=== PATIENT | female | born 1985 | race Caucasian/White ===

== ENCOUNTER 2018-12-16 10:26 | Inpatient (IN) ==
[2018-12-16] MEDS ORDERED: BUTORPHANOL 2 MG/ML VIAL IV PRN (12:23)
[2018-12-16] MEDS ORDERED: ONDANSETRON 4 MG/2 ML VIAL IV PRN (12:23)
[2018-12-16] MEDS ORDERED: FAMOTIDINE 20 MG/2 ML VIAL IV PRN (12:23)
[2018-12-16] MEDS ORDERED: MEPERIDINE 25 MG/1 ML VIAL IV PRN (12:23)
[2018-12-16] MEDS: LACTATED RINGERS 1,000 ML IV SCH ×3 (12:35→21:38)
[2018-12-16 12:58] LABS: Basophils % 0.6 % (0.0-0.8); Hematocrit 25.2 VOL% (35.7-47.0); Hemoglobin 7.6 GM/DL (12.0-16.0); Immature Granulocytes % 0.6 %; Immature Granulocytes Absolute 0.04 #; Lymphocytes # 1.8 10*3/uL (1.4-4.0); Lymphocytes % 25.6 % (21.3-54.2); Mean Corpuscular HGB Conc 30.2 GM/DL (32-36); Mean Corpuscular Volume 83.2 FL (87-102); Monocytes % 9.4 % (1.7-12.7); NRBC # 0.02 10*3/uL; Neutrophils % 63.8 % (38.7-73.9); Platelet Count 194 T/CUMM (130-400); Red Blood Count 3.03 MC/CUMM (3.8-5.5); Red Cell Distribution Width 13.6 % (9.3-17.3)
[2018-12-16 13:30] LABS: Alanine Aminotransferase 17 U/L (13-56); Alkaline Phosphatase 187 U/L (45-117); Aspartate Amino Transferase 25 U/L (0-37); Bilirubin,Total < 0.39 MG/DL (0.2-1.0); Blood Urea Nitrogen 16 MG/DL (7-18); Calcium 8.8 MG/DL (8.5-10.1); Glucose 68 MG/DL (74-106); Osmolality,Calculated 273.7 MOS/KG (273-304); Total Protein 5.7 G/DL (6.4-8.3); Uric Acid 5.9 MG/DL (2.6-6.0)
[2018-12-16] MEDS: AMPICILLIN INJ 2,000 MG in SODIUM CHLORIDE 0.9% 100 ML IV SCH ×2 (15:31→21:50)
[2018-12-16] MEDS ORDERED: CITRIC ACID/SODIUM CITRATE 30 ML UDCUP PO ONE (20:15)
[2018-12-16] MEDS ORDERED: PROMETHAZINE 25 MG/1 ML VIAL IM ONE (20:18)
[2018-12-16] MEDS ORDERED: ONDANSETRON 4 MG/2 ML VIAL IV ONE (20:18)
[2018-12-16] MEDS ORDERED: hydrOXYzine HCL 25 MG/1 ML VIAL IM PRN (20:18)
[2018-12-16] MEDS ORDERED: diphenhydrAMINE 50 MG/1 ML VIAL IV PRN (20:18)
[2018-12-16] MEDS ORDERED: ePHEDrine 50 MG/ML AMP IV PRN (20:18)
[2018-12-16] MEDS ORDERED: LACTATED RINGERS 250 ML IV PRN (20:18)
[2018-12-16] MEDS ORDERED: NALOXONE 0.4 MG/ML VIAL IV PRN (20:18)
[2018-12-16] MEDS ORDERED: fentaNYL 2 MCG/ROPIV 0.2% EPID 100 ML EPIDURAL SCH (20:30)
[2018-12-16] MEDS: POTASSIUM CHLORIDE 20 MEQ TABLET PO SCH (20:43)
[2018-12-16] MEDS ORDERED: SODIUM CHLOR 0.9% KCL 20 MEQ 20 MEQ/1,000 ML BAG IV SCH (21:00)
[2018-12-16 22:54] LABS: Apearance,Urine CLEAR (Clear); Bilirubin,Urine Negative (Negative); Blood, Urine Negative (Negative); Glucose,Urine (UA) Negative (Negative); Ketones,Urine Negative (Negative); Nitrite,Urine Negative (Negative); Protein,Urine 100 MG/DL; RBC,Urine 25 /HPF (0-4); Squamous Epithelial Cell,Urine Occasional /HPF (0-10); Urine Color Yellow (Yellow); Urine Specific Gravity 1.026 (1.001-1.035); Urine Urobilinogen < 2.0 EU/DL (0.2-1.0); WBC,Urine 2 /HPF (0-6)
[2018-12-16] MEDS ORDERED: LACTATED RINGERS 1,000 ML IV SCH (23:45)
[2018-12-17] MEDS: OXYTOCIN/LR 20 UNIT/1,000 ML BAG IV SCH ×2 (00:14→23:22)
[2018-12-17] MEDS: POTASSIUM CHLORIDE 20 MEQ TABLET PO SCH (03:00)
[2018-12-17] MEDS: AMPICILLIN INJ 2,000 MG in SODIUM CHLORIDE 0.9% 100 ML IV SCH (03:00)
[2018-12-17] MEDS: LACTATED RINGERS 1,000 ML IV SCH (03:08)
[2018-12-17] MEDS ORDERED: POTASSIUM CHLORIDE 20 MEQ TABLET PO ONE (08:30)
[2018-12-17] MEDS ORDERED: SODIUM CHLORIDE 0.9% 1,000 ML IV PRN (11:20)
[2018-12-17] MEDS ORDERED: OXYTOCIN/LR 20 UNIT/1,000 ML BAG IV ONE (11:30)
[2018-12-17] MEDS ORDERED: POTASSIUM CHLORIDE INJ 20 MEQ in LACTATED RINGERS 1,000 ML IV SCH (12:00)
[2018-12-17] MEDS ORDERED: BENZOCAINE 20%/MENTHOL 0.5% SPRAY 56 GM CAN TOP PRN (12:52)
[2018-12-17] MEDS ORDERED: HYDROCORTISONE 2.5% RECTAL CREAM 30 GM TUBE TOP PRN (12:52)
[2018-12-17] MEDS ORDERED: ACETAMINOPHEN 325 MG TABLET PO PRN (12:52)
[2018-12-17] MEDS ORDERED: oxyCODONE/ACETAMINOPHEN 5-325 MG TABLET PO PRN (12:52)
[2018-12-17] MEDS ORDERED: BISACODYL 10 MG SUPP RECTAL PRN (12:52)
[2018-12-17] MEDS ORDERED: LANOLIN 50% CREAM 0.3 OZ TUBE TOP PRN (12:52)
[2018-12-17] MEDS ORDERED: DIPH/TET/ACEL PERT BOOSTER VACCINE 0.5 ML VIAL IM ONE (12:52)
[2018-12-17] MEDS ORDERED: WITCH HAZEL PADS 100/JAR TOP PRN (12:52)
[2018-12-17] MEDS: IBUPROFEN 800 MG TABLET PO PRN ×2 (12:58→21:18)
[2018-12-17] MEDS: DOCUSATE SODIUM 100 MG CAPSULE PO SCH (21:18)
[2018-12-18 05:19] LABS: Basophils % 0.3 % (0.0-0.8); Eosinophils % 0.2 % (0.00-10.9); Hematocrit 26.6 VOL% (35.7-47.0); Hemoglobin 8.3 GM/DL (12.0-16.0); Immature Granulocytes % 0.7 %; Immature Granulocytes Absolute 0.08 #; Lymphocytes # 1.8 10*3/uL (1.4-4.0); Lymphocytes % 14.4 % (21.3-54.2); Mean Corpuscular HGB Conc 31.2 GM/DL (32-36); Mean Corpuscular Volume 82.9 FL (87-102); Mean Platelet Volume 14.1 FL (9.6-12.0); Monocytes % 5.5 % (1.7-12.7); NRBC # 0.02 10*3/uL; Neutrophils % 78.9 % (38.7-73.9); Platelet Count 147 T/CUMM (130-400); Red Blood Count 3.21 MC/CUMM (3.8-5.5); Red Cell Distribution Width 13.8 % (9.3-17.3); White Blood Count 12.3 T/CUMM (4-12)
[2018-12-18 05:54] LABS: Alanine Aminotransferase 13 U/L (13-56); Albumin 1.3 G/DL (3.4-5.0); Alkaline Phosphatase 136 U/L (45-117); Aspartate Amino Transferase 20 U/L (0-37); Bilirubin,Total < 0.39 MG/DL (0.2-1.0); Blood Urea Nitrogen 17 MG/DL (7-18); Calcium 7.8 MG/DL (8.5-10.1); Glucose 58 MG/DL (74-106); Osmolality,Calculated 280.3 MOS/KG (273-304); Total Protein 4.1 G/DL (6.4-8.3)
[2018-12-18] MEDS: DOCUSATE SODIUM 100 MG CAPSULE PO SCH ×2 (08:39→21:47)
[2018-12-18] MEDS: MULTIVITAMIN (PRENATAL) TABLET PO SCH (08:40)
[2018-12-18] MEDS: FERROUS SULFATE 325 MG TABLET PO SCH (08:40)
[2018-12-18] MEDS: IBUPROFEN 800 MG TABLET PO PRN (15:16)
[2018-12-18] MEDS: oxyCODONE/ACETAMINOPHEN 5-325 MG TABLET PO PRN ×2 (15:16→23:17)
[2018-12-19] MEDS: MULTIVITAMIN (PRENATAL) TABLET PO SCH (08:33)
[2018-12-19] MEDS: DOCUSATE SODIUM 100 MG CAPSULE PO SCH (08:35)
[2018-12-19] MEDS: FERROUS SULFATE 325 MG TABLET PO SCH (08:35)
[2018-12-19] MEDS: IBUPROFEN 800 MG TABLET PO PRN (11:12)
[2018-12-19] MEDS: oxyCODONE/ACETAMINOPHEN 5-325 MG TABLET PO PRN (11:12)
[2018-12-19 11:27] VITALS: BP 119/73
== END 2018-12-19 13:00 | disposition home or self-care (01) | DRG 806 ==
LOC: N.LDOUT 10:26 → N.LD 10:27 → N.OB 12-17 12:18
PROVIDERS: ADMIT Obstetrics & Gynecology; ATTEND Obstetrics & Gynecology

== ENCOUNTER 2020-02-03 18:25 | Observation (INO) ==
[2020-02-03 18:55] LABS: Basophils # 0.1 10*3/uL (0.0-0.2); Basophils % 0.6 % (0.0-0.8); Eosinophils # 0.1 10*3/uL (0.0-0.87); Eosinophils % 0.6 % (0.00-10.9); Hematocrit 38.3 VOL% (35.7-47.0); Hemoglobin 12.6 GM/DL (12.0-16.0); Immature Granulocytes % 0.3 %; Immature Granulocytes Absolute 0.02 #; Lymphocytes % 26.1 % (21.3-54.2); Mean Corpuscular HGB Conc 32.9 GM/DL (32-36); Mean Corpuscular Volume 85.9 FL (87-102); Monocytes % 9.5 % (1.7-12.7); Neutrophils % 62.9 % (38.7-73.9); Platelet Count 272 T/CUMM (130-400); Red Blood Count 4.46 MC/CUMM (3.8-5.5); Red Cell Distribution Width 13.9 % (9.3-17.3); White Blood Count 7.8 T/CUMM (4-12)
[2020-02-03] MEDS ORDERED: SODIUM CHLORIDE 0.9% 1,000 ML IV STA (19:00)
[2020-02-03 19:18] LABS: Albumin 4.2 G/DL (3.4-5.0); Bilirubin,Total 0.4 MG/DL (0.2-1.0); Calcium 9.1 MG/DL (8.5-10.1); Total Protein 7.8 G/DL (6.4-8.3)
[2020-02-03 19:25] LABS: Hypochromasia 1+; Microcytosis Slight; Platelet Estimate Normal
[2020-02-03] MEDS ORDERED: POTASSIUM CHLORIDE 20 MEQ/15 ML UDCUP PO ONE (19:27)
[2020-02-03] MEDS ORDERED: ACETAMINOPHEN 500 MG TABLET PO STA (19:50)
[2020-02-03] MEDS ORDERED: ACETAMINOPHEN 500 MG TABLET ONE (19:55)
[2020-02-03 20:08] LABS: Apearance,Urine Slightly Hazy (Clear); Bacteria,Urine Occasional /HPF (Few); Bilirubin,Urine Small mg/dL (Negative); Blood, Urine Negative (Negative); Glucose,Urine (UA) Negative (Negative); Hyaline Casts,Urine 38 /LPF (0-3); Ketones,Urine 5 mg/dL (Negative); Mucus,Urine Many /LPF (Occasional); Nitrite,Urine Negative (Negative); Protein,Urine >=500 MG/DL; RBC,Urine 13 /HPF (0-4); Squamous Epithelial Cell,Urine Occasional /HPF (0-10); Urine Color Yellow (Yellow); Urine Specific Gravity 1.027 (1.001-1.035); WBC,Urine 10 /HPF (0-6)
[2020-02-03 20:13] LABS: Barbiturates Screen,Urine Negative (Negative); Benzodiazepines Screen,Urine Negative (Negative); Cannabinoid Screen,Urine Negative (Negative); Opiate Screen,Urine Negative (Negative); Phencyclidine Screen,Urine Negative (Negative)
[2020-02-03] MEDS ORDERED: KETOROLAC 30 MG/1 ML VIAL ONE (20:30)
[2020-02-03] MEDS ORDERED: KETOROLAC 30 MG/1 ML VIAL IV STA (20:32)
[2020-02-03] MEDS ORDERED: clonazePAM 0.5 MG TABLET PO ONE (20:33)
[2020-02-03] MEDS ORDERED: DEXTROSE 50% 25 GM/50 ML VIAL IV PRN (21:06)
[2020-02-03] MEDS ORDERED: ONDANSETRON 4 MG/2 ML VIAL IV PRN (21:06)
[2020-02-03] MEDS ORDERED: ACETAMINOPHEN 325 MG TABLET PO PRN (21:06)
[2020-02-03] MEDS ORDERED: GLUCAGON 1 MG VIAL IM PRN (21:06)
[2020-02-03] MEDS ORDERED: NICOTINE 21 MG/24 HR PATCH TRANSDERM PRN (21:06)
[2020-02-03] MEDS ORDERED: cefTRIAXone 1,000 MG in SYRINGE 1 EACH IV SCH (22:30)
[2020-02-04] MEDS: SODIUM CHLORIDE 0.9% 1,000 ML IV SCH ×3 (00:35→14:35)
[2020-02-04 04:54] LABS: Calcium 7.8 MG/DL (8.5-10.1); Osmolality,Calculated 277.5 MOS/KG (273-304)
[2020-02-04] MEDS: POTASSIUM CHLORIDE 20 MEQ TABLET PO PRN ×3 (07:52→14:25)
[2020-02-04 11:40] VITALS: BP 86/53
[2020-02-04] MEDS: clonazePAM 0.5 MG TABLET PO PRN ×2 (11:56→14:36)
== END 2020-02-04 14:30 | disposition home or self-care (01) ==
LOC: N.EDINP 18:25 → N.ED 18:25 → N.3E 23:53
PROVIDERS: ADMIT Internal Medicine Geriatric Medicine; ATTEND Internal Medicine Geriatric Medicine

== ENCOUNTER 2020-08-17 14:12 | Observation (INO) ==
[2020-08-17] MEDS ORDERED: INFLUENZA VIRUS VACCINE 0.5 ML SYRINGE IM ONE (15:17)
[2020-08-17] MEDS: POTASSIUM CHLORIDE INJ 40 MEQ in DEXTROSE 5% LACTATED RINGERS 1,000 ML IV SCH (16:00)
[2020-08-17] MEDS ORDERED: ACETAMINOPHEN 500 MG TABLET PO PRN (21:07)
[2020-08-17] MEDS ORDERED: THIAMINE INJ 100 MG, FOLIC ACID INJ 1 MG, MULTIVITAMIN INJ 10 ML in SODIUM CHLORIDE 0.9... IV ONE (22:30)
[2020-08-18 06:06] LABS: Calcium 7.7 MG/DL (8.5-10.1); Osmolality,Calculated 271.8 MOS/KG (273-304); Potassium 2.9 MMOL/L (3.5-5.1)
[2020-08-18 07:16] VITALS: BP 106/61
[2020-08-18] MEDS: POTASSIUM CHLORIDE INJ 40 MEQ in DEXTROSE 5% LACTATED RINGERS 1,000 ML IV SCH (07:25)
== END 2020-08-18 09:55 | disposition home or self-care (01) ==
LOC: N.OB
PROVIDERS: ADMIT Obstetrics & Gynecology; ATTEND Obstetrics & Gynecology